=== PATIENT | female | born 1995 | race Caucasian/White ===

== ENCOUNTER 2017-10-16 11:59 | Emergency (ER) | payer OTHER ==
--- NOTE | 2017-10-16 12:56 | EDPHY ---
H & P Stated Complaint: throat pain continues, + strep-last day of z pack today Time Seen by Provider: 10/16/17 12:56 HPI/ROS: HPI: This is a 21-year-old female who presents with Chief Complaint: throat pain continues, + strep-last day of z pack today Location: Throat Quality: Pain Duration: 1-2 Signs and Symptoms: no fever, no nausea, no vomiting, no diarrhea, no urinary symptoms, no chest pain, no shortness of breath, no wheezing, no cough, no sore throat, no neck stiffness, no joint pain, + swollen glands, no ear pain, no rash Timing: Was improving but now worse since last night Severity: Moderate Context: Patient reports that she had had a cold approximately 2 weeks ago. She also had a sore throat at that time and was started on amoxicillin due to her propensity for strep throat. 8 days later she went to her technology services manager and had a a negative mono screen and positive throat culture at her technology services manager office approximately 6 days ago that grew strep group BC and E. She reports that she was started on azithromycin was starting to feel better until last night when her glands began to feel more swollen. She reports that she is on day 5 of 5 with azithromycin. She denies any drooling/neck stiffness. She does report decreased appetite. LMP 2-3 weeks ago. Modifying Factors: Azithromycin Comment: ROS: see HPI Constitutional: + fever, no chills, no weight loss Eyes: No blurred vision Respiratory: No shortness of breath, no cough Cardiovascular: No chest pain, no palpitations Gastrointestinal: No nausea, no vomiting, no diarrhea, no hematemesis, no blood in stool Genitourinary: No dysuria, no blood in urine Extremities: No myalgias, no edema Neurologic: No weakness, no numbness Skin: No rashes, no petechiae Hematologic: No bruising, no bleeding MEDICAL/SURGICAL/SOCIAL HISTORY: Medical history: Generally healthy. Does not take any regular medications. Surgical history: Denies Social history: Family history noncontributory. CONSTITUTIONAL: Nontoxic-appearing teenage white female, awake and alert, no obvious distress HEENT: Atraumatic and normocephalic, PERRL, EOMI. Nares patent; no rhinorrhea; no nasal mucosal edema. Tympanic membranes clear. Oropharynx clear, tonsils 1 + with no erythema; uvula midline; no exudate and moist pink mucosa. Airway patent. No lymphadenopathy. No meningismus. Cardiovascular: Normal S1/S2, regular rate, regular rhythm, without murmur rub or gallop. PULMONARY/CHEST: Symmetrical and nontender. Clear to auscultation bilaterally. Good air movement. No accessory muscle usage. ABDOMEN: Soft, nondistended, nontender, no rebound, no guarding, no peritoneal signs, no masses or organomegaly. No CVAT. EXTREMITIES: 2/2 pulses, strength 5/5, no deformities, no clubbing, no cyanosis or edema. NEUROLOGICAL: no focal neuro deficits. GCS 15. SKIN: Warm and dry, no erythema. no rash. Good capillary refill. Source: Family (Mother) Exam Limitations: No limitations - Personal History LMP (Females 10-55): 22-28 Days Ago - Medical/Surgical History Hx Asthma: No Hx Chronic Respiratory Disease: No Hx Diabetes: No Hx Cardiac Disease: No Hx Renal Disease: No Hx Cirrhosis: No Hx Alcoholism: No Hx HIV/AIDS: No Hx Splenectomy or Spleen Trauma: No Other PMH: denies - Social History Smoking Status: Never smoked Constitutional: Initial Vital Signs Temperature (C) 36.9 C 10/16/17 12:02 Heart Rate 88 10/16/17 12:02 Respiratory Rate 16 10/16/17 12:02 Blood Pressure 99/72 L 10/16/17 12:02 O2 Sat (%) 99 10/16/17 12:02 O2 Delivery Mode Room Air Allergies/Adverse Reactions: No Known Allergies Allergy (Unverified 10/16/17 12:01) Home Medications: Medication Instructions Recorded Azithromycin 10/16/17 Azithromycin [Zithromax] 250 mg PO DAILY #6 tab 10/16/17 oxyCODONE/APAP 5/325 [Percocet 1 - 2 tab PO Q4H PRN #10 tab 10/16/17 5/325 (*)] Medical Decision Making ED Course/Re-evaluation: Vital vital signs stable. No systemic signs to indicate sepsis. Given Decadron 10 mg and Percocet upon arrival with adequate relief Patient tolerating liquids without difficulty No signs of meningitis/otitis media/airway compromise/respiratory distress/ Logan's angina/tonsillar abscess Advised continue supportive care. This patient was seen under the supervision of my secondary supervising physician. I evaluated care for this patient independently. Differential Diagnosis: Differential diagnosis includes but is not limited to viral pharyngitis, strep pharyngitis, upper respiratory infection, mononucleosis, viral syndrome. - Data Points Medications Given: Discontinued Medications Dexamethasone (Decadron) 10 mg PO EDNOW ONE Stop: 10/16/17 13:27 Last Admin: 10/16/17 13:43 Dose: 10 mg Oxycodone/Acetaminophen (Percocet 5/325) 1 tab PO EDNOW ONE Stop: 10/16/17 13:27 Last Admin: 10/16/17 13:43 Dose: 1 tab Departure - Departure Disposition: Home, Routine, Self-Care Clinical Impression: Strep pharyngitis Condition: Good Instructions: Strep Throat (ED) Additional Instructions: Consume a minimum of 8-10 glasses of water or electrolyte fluid replacement drinks that include Gatorade, Powerade, Pedialyte. If unable to drink fluids consume popsicles instead. Eat a bland diet for the next 48 hours and then slowly advance as tolerated. Referrals: SHALONDA BUSH [Other] - As per Instructions Prescriptions: Azithromycin [Zithromax] 250 mg PO DAILY #6 tab oxyCODONE/APAP 5/325 [Percocet 5/325 (*)] 1 - 2 tab PO Q4H PRN #10 tab PRN Reason: Pain, Severe
[2017-10-16] MEDS ORDERED: OXYCODONE/APAP 5/325 TAB PO ONE (13:26)
[2017-10-16] MEDS ORDERED: DEXAMETHASONE 4 MG TAB PO ONE (13:26)
[2017-10-16 13:49] VITALS: BP 112/75
== END 2017-10-16 13:48 | disposition home or self-care (01) ==
DX: J02.0 Streptococcal pharyngitis (principal)